=== PATIENT | female | born 1970 | race Caucasian/White ===

== ENCOUNTER → 2019-10-23 | Outpatient (CLI) | payer OTHER ==
[~2019-10-23] MED LIST: PROM25 PO; RXOXYACE PO
== END | disposition home or self-care (01) ==
LOC: LAB SHORT 17:09 → LAB 17:09
DX: Z48.817 Encounter for surgical aftercare following surgery on the skin and subcutaneous tissue (principal)
CPT/HCPCS: 87070; 87205

== ENCOUNTER → 2019-10-30 | Outpatient (CLI) | payer OTHER | LOC: LAB SHORT 17:29 → LAB 17:29 | DX: Z48.817 Encounter for surgical aftercare following surgery on the skin and subcutaneous tissue (principal); Z48.02 Encounter for removal of sutures; L08.9 Local infection of the skin and subcutaneous tissue, unspecified; L27.0 Generalized skin eruption due to drugs and medicaments taken internally | CPT/HCPCS: 87070; 87205 ==

== ENCOUNTER → 2020-06-01 | Outpatient (CLI) | payer OTHER | END | disposition home or self-care (01) | LOC: LAB 12:10 → LAB SHORT 12:10 | DX: N30.00 Acute cystitis without hematuria (principal) | CPT/HCPCS: 87077; 87086; 87186 ==